=== PATIENT | female | born 1995 | race Caucasian/White ===

== ENCOUNTER 2016-04-04 19:06 | Emergency (ER) | payer SELFPAY | END 2016-04-04 20:20 | disposition left against medical advice (07) | LOC: UCCORT 19:06 | DX: Z53.21 Procedure and treatment not carried out due to patient leaving prior to being seen by health care provider (principal); H57.8 Other specified disorders of eye and adnexa ==

== ENCOUNTER 2016-04-18 15:21 | Emergency (ER) | payer BC ==
[2016-04-18 15:33] VITALS: BP 119/59
--- NOTE | 2016-05-01 21:58 | UC ---
Skin Complaint HPI - HPI Summary HPI Summary: 21 yo female with itchy rash that she attributes to new laundry detergent x 2 days - History of Current Complaint Chief Complaint: UCRash Time Seen by Provider: 04/18/16 15:54 Stated Complaint: RASH Hx Obtained From: Patient Hx Last Menstrual Period: 04/07/16 Onset/Duration: Gradual Onset, Lasting Days - 2 Onset Severity: Mild Current Severity: Moderate Pain Intensity: 0 Pain Scale Used: 0-10 Numeric Location: Diffuse Character: Pruritus, Redness, Raised - slight Aggravating: Clothing, Touch Alleviating: Cold Associated Signs & Symptoms: Positive: Rash - Allergy/Home Medications Allergies/Adverse Reactions: Allergies Allergy/AdvReac Type Severity Reaction Status Date / Time Amoxicillin [From Augmentin] Allergy Intermediate Swelling Verified 04/22/16 19: 00 Clavulanic Acid Allergy Intermediate Swelling Verified 04/22/16 19:00 [From Augmentin] Review of Systems Constitutional: Negative Skin: Rash Eyes: Negative ENT: Negative Respiratory: Negative Cardiovascular: Negative Gastrointestinal: Negative Genitourinary: Negative Motor: Negative Neurovascular: Negative Musculoskeletal: Negative Neurological: Negative Psychological: Negative All Other Systems Reviewed And Are Negative: Yes PMH/Surg Hx/FS Hx/Imm Hx Previously Healthy: Yes - Surgical History Surgical History: Yes Surgery Procedure, Year, and Place: appy 01/2015 - Family History Known Family History: Positive: Hypertension, Other - Denies [facility] of Eye redness - Social History Alcohol Use: None Substance Use Type: None Smoking Status (MU): Never Smoked Tobacco Have You Smoked in the Last Year: No - Immunization History Most Recent Influenza Vaccination: none Vaccination Up to Date: Yes Physical Exam Triage Information Reviewed: Yes Appearance: Well-Appearing, No Pain Distress, Well-Nourished Vital Signs: Initial Vital Signs Temp 98.4 F 04/18/16 15:27 Pulse 62 04/18/16 15:27 Resp 17 04/18/16 15:27 BP 119/59 04/18/16 15:27 Pulse Ox 100 04/18/16 15:27 Vital Signs Reviewed: Yes Eyes: Positive: Conjunctiva Clear ENT: Positive: Hearing grossly normal. Negative: Nasal drainage, Trismus, Muffled/hoarse voice Neck: Positive: Supple Respiratory: Positive: Lungs clear, Normal breath sounds, No respiratory distress Cardiovascular: Positive: RRR, No Murmur Musculoskeletal: Positive: ROM Intact Neurological: Positive: Alert Psychological Exam: Normal Skin Exam: Other - red rash c/w contact dermatitis Course/Dx - Diagnoses Provider Diagnoses: contact dermatitis Discharge - Discharge Plan Condition: Stable Disposition: HOME Patient Education Materials: Contact Dermatitis (ED) Referrals: No Primary Care Phys,NOPCP [Primary Care Provider] - Additional Instructions: recheck in 10 days if not better
== END 2016-04-18 16:20 | disposition home or self-care (01) ==
LOC: UCCORT 15:21
DX: L25.9 Unspecified contact dermatitis, unspecified cause (principal)
CPT/HCPCS: 99212; G0463

== ENCOUNTER 2016-04-22 18:28 | Emergency (ER) | payer BC ==
[2016-04-22 19:07] VITALS: BP 128/66
--- NOTE | 2016-04-22 20:17 | UC ---
General HPI - HPI Summary HPI Summary: tongue is white and coated. She thinks it might be thrush. On Prednisone for 4d for hives. Still getting hives now and then, but they're better. WAnts to be sure she doesn't have DM, as it runs in her family. Weight gain, constant hunger , constant fatigue. No fever. - History of Current Complaint Chief Complaint: UCGeneralIllness Stated Complaint: MED REACTION-ORAL Time Seen by Provider: 04/22/16 19:58 Hx Obtained From: Patient Onset/Duration: Gradual Onset, Lasting Days - 2 Timing: Constant Onset Severity: Mild Current Severity: Mild Associated Signs & Symptoms: Positive: Weakness - Allergy/Home Medications Allergies/Adverse Reactions: Allergies Allergy/AdvReac Type Severity Reaction Status Date / Time Amoxicillin [From Augmentin] Allergy Intermediate Swelling Verified 04/22/16 19: 00 Clavulanic Acid Allergy Intermediate Swelling Verified 04/22/16 19:00 [From Augmentin] Home Medications: Home Medications Prednisone [Deltasone] 20 mg PO BID 04/22/16 [History Confirmed 04/22/16] PMH/Surg Hx/FS Hx/Imm Hx Previously Healthy: Yes - Surgical History Surgical History: Yes Surgery Procedure, Year, and Place: appy 01/2015 - Family History Known Family History: Positive: Diabetes - many members, Other - Denies [facility] of Eye redness - Social History Occupation: Employed Full-time Lives: With Family Alcohol Use: None Substance Use Type: None Smoking Status (MU): Never Smoked Tobacco Have You Smoked in the Last Year: No - Immunization History Most Recent Influenza Vaccination: none Vaccination Up to Date: Yes Review of Systems Constitutional: Fatigue Skin: Other - recurrent hives for weeks Eyes: Negative ENT: Other - coated tongue Respiratory: Negative Cardiovascular: Negative Gastrointestinal: Negative Genitourinary: Negative Motor: Negative Neurovascular: Negative Musculoskeletal: Negative Neurological: Negative Psychological: Negative All Other Systems Reviewed And Are Negative: Yes Physical Exam Triage Information Reviewed: Yes Appearance: Well-Appearing, No Pain Distress, Well-Nourished, Obese Vital Signs: Initial Vital Signs Temp 97.9 F 04/22/16 19:01 Pulse 67 04/22/16 19:01 Resp 18 04/22/16 19:01 BP 128/66 04/22/16 19:01 Pulse Ox 100 04/22/16 19:01 Vital Signs Reviewed: Yes Eye Exam: Normal ENT Exam: Normal ENT: Positive: Other: - tongue is "coated" but not consistent with thrush. No other mouth sores Neck exam: Normal Respiratory Exam: Normal Cardiovascular Exam: Normal Musculoskeletal Exam: Normal Neurological Exam: Normal Psychological Exam: Normal Skin Exam: Normal Diagnostics - Laboratory Diagnostic Studies Completed/Ordered: BG 88 Course/Dx - Course Course Of Treatment: tongue coating likely due to prednisone; advised establishing with application technician. She admits to a lot of anxiety and health fears - Differential Dx - Multi-Symptom Provider Diagnoses: urticaria Discharge - Discharge Plan Condition: Stable Disposition: HOME Patient Education Materials: Urticaria (ED) Referrals: No Primary Care Phys,NOPCP [Primary Care Provider] - Additional Instructions: Your tongue does not look like thrush. The surface of the tongue can change with medications, and it's likely the Prednisone is making the surface dry and thickened. Try sucking on candies to keep the mouth moist. Make an appointment for a thorough physical exam with a primary care doctor. Your blood sugar is normal today at 88
== END 2016-04-22 20:20 | disposition home or self-care (01) ==
LOC: UCCORT 18:28
DX: L50.9 Urticaria, unspecified (principal); E66.9 Obesity, unspecified; Z88.1 Allergy status to other antibiotic agents
CPT/HCPCS: 99211; G0463

== ENCOUNTER 2016-05-11 12:02 | Emergency (ER) | payer BC ==
[2016-05-11 14:32] VITALS: BP 117/70
[2016-05-11] MEDS ORDERED: Ibuprofen TAB* 600 MG PO ONE (15:02)
--- NOTE | 2016-05-11 15:07 | UC ---
UC General HPI - History of Current Complaint Chief Complaint: UCGU Stated Complaint: DIARRHEA, HEAVY MENSES Time Seen by Provider: 05/11/16 14:44 - Allergy/Home Medications Allergies/Adverse Reactions: Allergies Allergy/AdvReac Type Severity Reaction Status Date / Time Amoxicillin [From Augmentin] Allergy Intermediate Swelling Verified 04/22/16 19: 00 Clavulanic Acid Allergy Intermediate Swelling Verified 04/22/16 19:00 [From Augmentin] Home Medications: Home Medications Acetaminophen [Acetaminophen Extra Stren] 500 mg PO PRN 05/11/16 [History] PMH/Surg Hx/FS Hx/Imm Hx Previously Healthy: Yes - Surgical History Surgical History: Yes Surgery Procedure, Year, and Place: appy 01/2015 - Family History Known Family History: Positive: None, Diabetes - many members, Other - Denies [facility] of Eye redness - Social History Alcohol Use: None Substance Use Type: None Smoking Status (MU): Never Smoked Tobacco Have You Smoked in the Last Year: No - Immunization History Most Recent Influenza Vaccination: none Vaccination Up to Date: Yes Review of Systems Constitutional: Negative Skin: Negative Eyes: Negative ENT: Negative Respiratory: Negative Cardiovascular: Negative Gastrointestinal: Abdominal Pain, Other - heavy menses Genitourinary: Negative Motor: Negative Neurovascular: Negative Musculoskeletal: Negative Neurological: Negative Psychological: Negative All Other Systems Reviewed And Are Negative: Yes Physical Exam Triage Information Reviewed: Yes Appearance: Well-Appearing, Well-Nourished, Pain Distress Vital Signs: Initial Vital Signs Temp 97.8 F 05/11/16 14:25 Pulse 80 05/11/16 14:25 Resp 14 05/11/16 14:25 BP 117/70 05/11/16 14:25 Pulse Ox 100 05/11/16 14:25 Eye Exam: Normal Eyes: Positive: Conjunctiva Clear ENT Exam: Normal ENT: Positive: Normal ENT inspection, Hearing grossly normal, Pharynx normal, TMs normal Dental Exam: Normal Neck exam: Normal Neck: Positive: Supple, Nontender, No Lymphadenopathy Respiratory Exam: Normal Respiratory: Positive: Chest non-tender, Lungs clear, Normal breath sounds Cardiovascular Exam: Normal Cardiovascular: Positive: RRR, No Murmur, Pulses Normal Abdomen Description: Positive: Nontender, No Organomegaly, Soft, Other: - no palpable masses, non tender with palpation throughout Bowel Sounds: Positive: Present Musculoskeletal Exam: Normal Musculoskeletal: Positive: Strength Intact, ROM Intact, No Edema Neurological Exam: Normal Neurological: Positive: Alert, Muscle Tone Normal Psychological Exam: Normal Skin Exam: Normal Course/Dx - Course Course Of Treatment: hx obtained, exam performed, ibuprofen given, BC presribed. [facility] referral given. - Differential Dx - Multi-Symptom Provider Diagnoses: dysmennohrea. cramping Discharge - Discharge Plan Condition: Stable Disposition: HOME Prescriptions: Norgestimate-Eth Estradiol(NF) [Ortho Tri-Cyclen (NF)] 1 tab PO DAILY #1 gregory Patient Education Materials: Dysmenorrhea (ED) Additional Instructions: FOllow up with a ACID REMOVER for your heavy periods. I recommend continuing the ibuprofen for cramping and bleeding. Take the medication as directed.
== END 2016-05-11 15:19 | disposition home or self-care (01) ==
LOC: UCCORT 12:02
DX: N94.6 Dysmenorrhea, unspecified (principal); N92.0 Excessive and frequent menstruation with regular cycle; R19.7 Diarrhea, unspecified; Z88.1 Allergy status to other antibiotic agents
CPT/HCPCS: 99212; A9270-GY; G0463

== ENCOUNTER 2016-08-16 10:08 | Emergency (ER) | payer BC ==
[2016-08-16 11:07] VITALS: BP 114/60
--- NOTE | 2016-08-16 11:38 | UC ---
Ear Complaint HPI - HPI Summary HPI Summary: "1. c/o of bi-lat ear pain for the past 4 days, denies any recent URI. Also c/o urinary frequency and burning with urination. Pt has been having issues with yeast infections over the past 6 months following antibiotic use. she is unsure if she has a UTI or yeast infection." -she has not been seen for these. She plans to establish with [facility] in [place] but hasnt done so yet. Does not have PCP. Has menses no adn declines exam today. took uristat last night. significant dysuria x months she states. She does have thick white discharge with itchiness. Denies as she is griffiths. - History of Current Complaint Chief Complaint: UCEar Stated Complaint: EAR,URINARY COMPLAINT Time Seen by Provider: 08/16/16 11:18 Hx Last Menstrual Period: 08/14/16 - Allergies/Home Medications Allergies/Adverse Reactions: Allergies Allergy/AdvReac Type Severity Reaction Status Date / Time Amoxicillin [From Augmentin] Allergy Intermediate Swelling Verified 04/22/16 19: 00 Clavulanic Acid Allergy Intermediate Swelling Verified 04/22/16 19:00 [From Augmentin] Home Medications: Home Medications Uro-Stat 2 cap PO PRN 08/16/16 [History] PMH/Surg Hx/FS Hx/Imm Hx Previously Healthy: Yes - Surgical History Surgical History: Yes Surgery Procedure, Year, and Place: app 01/2015 - Family History Known Family History: Positive: None, Diabetes - many members, Other - Denies [facility] of Eye redness - Social History Alcohol Use: Rare Substance Use Type: None Smoking Status (MU): Never Smoked Tobacco Have You Smoked in the Last Year: No - Immunization History Most Recent Influenza Vaccination: none Vaccination Up to Date: Yes Review of Systems Constitutional: Negative Skin: Negative Eyes: Negative ENT: Ear Ache Respiratory: Negative Cardiovascular: Negative Gastrointestinal: Negative Genitourinary: Dysuria Motor: Negative Neurovascular: Negative Musculoskeletal: Negative Neurological: Negative Psychological: Negative All Other Systems Reviewed And Are Negative: Yes Physical Exam Triage Information Reviewed: Yes Appearance: Well-Appearing, No Pain Distress, Well-Nourished Vital Signs: Initial Vital Signs Temp 98.8 F 08/16/16 10:54 Pulse 70 08/16/16 10:54 Resp 16 08/16/16 10:54 BP 114/60 08/16/16 10:54 Pulse Ox 100 08/16/16 10:54 Eye Exam: Normal ENT: Positive: Pharynx normal, Pharyngeal erythema - mild with + PND., TMs normal - b/l serous fluid mild-moderate, rt > left. no erythema, no bulging.. Negative: TM bulging, TM dull, TM red, Tonsillar swelling, Tonsillar exudate Dental Exam: Normal Neck exam: Normal Neck: Positive: Supple, Nontender, No Lymphadenopathy Respiratory: Positive: Lungs clear, Normal breath sounds, No respiratory distress, No accessory muscle use Cardiovascular Exam: Normal Cardiovascular: Positive: RRR, No Murmur, Pulses Normal, Brisk Capillary Refill Abdomen Description: Positive: Soft, Other: - mild suprapubic tenderness.. Negative: CVA Tenderness (R), CVA Tenderness (L), Distended, Guarding Musculoskeletal Exam: Normal Neurological Exam: Normal Psychological Exam: Normal Skin Exam: Normal Ear Complaint Course/Dx - Differential Dx/Diagnosis Differential Diagnosis/HQI/PQRI: Otitis Externa, Otitis Media, URI, Other - UTI , vaginal candidisis Provider Diagnoses: Dysuria, B/l serous otitis Discharge - Discharge Plan Condition: Stable Disposition: HOME Prescriptions: Fluconazole [Diflucan 100 mg tab] 100 mg PO ONCE #1 tab Fluticasone NASAL SPRAY 50MCG* [Flonase NASAL SPRAY 50MCG*] 2 spray BOTH NARES DAILY #1 btl Nitrofurantoin Monohyd Macro [Macrobid] 100 mg PO BID #14 cap Patient Education Materials: Urinary Tract Infection in Women (ED), Vulvovaginal Candidiasis (ED), Serous Otitis Media (ED) Referrals: [facility] [Provider Group] - 3 Days No Primary Care Phys,NOPCP [Primary Care Provider] - Additional Instructions: Your urine is sent for a culture as we are unable to get an accurate urine dip because of the medicine that you took. You should call the [facility] on Thursday that you are planning to establish with for an appt soon. If you have symptoms of UTI in future, you should seek treatment immediately as they can become very serious if untreated and they progress.
== END 2016-08-16 12:05 | disposition home or self-care (01) ==
LOC: UCCORT 10:08
DX: H65.93 Unspecified nonsuppurative otitis media, bilateral (principal); R30.0 Dysuria; Z88.1 Allergy status to other antibiotic agents
CPT/HCPCS: 87086; 99212; G0463

== ENCOUNTER 2017-11-10 07:48 | Emergency (ER) | payer BC ==
[2017-11-10 08:10] VITALS: BP 112/47
--- NOTE | 2017-11-10 08:47 | UC ---
Skin Complaint HPI - HPI Summary HPI Summary: foreign body left plantar foot x 1 day stepped on glass yesterday , small glass went into her left foot , cannot take it out, sever pain with walking, better if not step on her left foot - History of Current Complaint Chief Complaint: UCLowerExtremity Time Seen by Provider: 11/10/17 08:14 Stated Complaint: GLASS IN LEFT FOOT Hx Obtained From: Patient Hx Last Menstrual Period: 10/16/17 ?: No Onset/Duration: Sudden Onset, Lasting Days - 1, Still Present Timing: Constant Onset Severity: Moderate Current Severity: Moderate Pain Intensity: 0 Pain Scale Used: 0-10 Numeric Location: Discrete - left plantar foot Character: Painful Aggravating Factor(s): Touch, Other - walking Alleviating Factor(s): Nothing Associated Signs & Symptoms: Positive: Tenderness Related History: Foreign Body - Allergy/Home Medications Allergies/Adverse Reactions: Allergies Allergy/AdvReac Type Severity Reaction Status Date / Time amoxicillin [From Augmentin] Allergy Swelling Verified 11/10/17 08:04 clavulanic acid Allergy Swelling Verified 11/10/17 08:04 [From Augmentin] Home Medications: Home Medications NK [No Home Medications Reported] 11/10/17 [History Confirmed 11/10/17] Review of Systems Constitutional: Negative Is Patient Immunocompromised?: No All Other Systems Reviewed And Are Negative: Yes PMH/Surg Hx/FS Hx/Imm Hx Previously Healthy: Yes - Surgical History Surgical History: Yes Surgery Procedure, Year, and Place: appy 01/2015 - Family History Known Family History: Positive: None, Diabetes - many members, Other - Denies [facility] of Eye redness - Social History Alcohol Use: None Substance Use Type: None Smoking Status (MU): Never Smoked Tobacco Have You Smoked in the Last Year: No - Immunization History Most Recent Influenza Vaccination: none Vaccination Up to Date: Yes Physical Exam Triage Information Reviewed: Yes Appearance: Well-Appearing, No Pain Distress, Well-Nourished Vital Signs: Initial Vital Signs Temp 98.3 F 11/10/17 08:04 Pulse 76 11/10/17 08:04 Resp 18 11/10/17 08:04 BP 112/47 11/10/17 08:04 Pulse Ox 99 11/10/17 08:04 Vital Signs Reviewed: Yes Eye Exam: Normal Eyes: Positive: Conjunctiva Clear ENT: Positive: Normal ENT inspection, Hearing grossly normal, Pharynx normal Neck exam: Normal Neck: Positive: Supple, Nontender Respiratory: Positive: Chest non-tender, Lungs clear, Normal breath sounds Cardiovascular: Positive: RRR, No Murmur, Pulses Normal Skin: Positive: Other - left plantar foot: + FB / glass noter , the glass was removed using a splinter forcep Course/Dx - Diagnoses Provider Diagnoses: foreign body left foot Discharge - Sign-Out/Discharge Documenting (check all that apply): Patient Departure - Discharge Plan Condition: Stable Disposition: HOME Patient Education Materials: Soft Tissue Foreign Body (ED) Referrals: No Primary Care Phys,NOPCP [Primary Care Provider] - If Needed - Billing Disposition and Condition Condition: STABLE Disposition: Home
== END 2017-11-10 08:38 | disposition home or self-care (01) ==
LOC: UCCORT 07:48
DX: S91.342A Puncture wound with foreign body, left foot, initial encounter (principal); Z88.0 Allergy status to penicillin; Z88.8 Allergy status to other drugs, medicaments and biological substances; W22.8XXA Striking against or struck by other objects, initial encounter; Y93.01 Activity, walking, marching and hiking; Y92.9 Unspecified place or not applicable
CPT/HCPCS: 28190; 99211; G0463

== ENCOUNTER 2018-01-15 10:15 | Emergency (ER) | payer BC ==
[2018-01-15 10:54] VITALS: BP 121/58
--- NOTE | 2018-01-15 11:04 | UC ---
Complaint Female HPI - HPI Summary HPI Summary: 22 y/o female presents to the urgent care c/o burning and discomfort on urination and a white vaginal discharge w/ itchiness for the past week. Pt reports she has drinking fluids and apply 3 day course of Monistat vaginal cream w/o any improvement. LMP: 12/22/2017 w/ regular menstrual cycles. Pain on uriantion is 3/10. Pt denies lower back pain, pelvic pain, flank pain, Hx of STD 's SOB, chest pain, abdominal pain, N/V/D. - History Of Current Complaint Chief Complaint: UCGeneralIllness Stated Complaint: URINARY Time Seen by Provider: 01/15/18 10:48 Hx Obtained From: Patient Hx Last Menstrual Period: 12/22/17 ?: No Onset/Duration: Gradual Onset, Lasting Weeks - 1 week, Still Present, Worse Since - yesterday Timing: Constant Severity Initially: Mild Severity Currently: Mild Pain Intensity: 2 Pain Scale Used: 0-10 Numeric Character: Burning Aggravating Factor(s): Urination Alleviating Factor(s): Nothing Associated Signs And Symptoms: Positive: Vaginal Discharge - white. Negative: Fever, Back Pain, Nausea, Vomiting(# Of Episodes =), Genital Swelling, Genital Blisters - Risk Factors Ectopic Risk Factor: Negative Ovarian Torsion Risk Factor: Negative - Allergies/Home Medications Allergies/Adverse Reactions: Allergies Allergy/AdvReac Type Severity Reaction Status Date / Time amoxicillin [From Augmentin] Allergy Swelling Verified 01/15/18 10:51 clavulanic acid Allergy Swelling Verified 01/15/18 10:51 [From Augmentin] PMH/Surg Hx/FS Hx/Imm Hx Previously Healthy: Yes Other Psychological History: ADHD - Surgical History Surgical History: Yes Surgery Procedure, Year, and Place: app 01/2015 - Family History Known Family History: Positive: Cardiac Disease, Diabetes - many members - Social History Occupation: Employed Full-time Lives: With Family Alcohol Use: Occasionally Substance Use Type: None Smoking Status (MU): Never Smoked Tobacco Have You Smoked in the Last Year: No - Immunization History Most Recent Influenza Vaccination: none Vaccination Up to Date: Yes Review of Systems Constitutional: Negative Skin: Negative Eyes: Negative ENT: Negative Respiratory: Negative Cardiovascular: Negative Gastrointestinal: Negative Genitourinary: Dysuria, Frequency, Urgency, Vaginal/Penile Itching, Vaginal/ Penile Discharge Motor: Negative Neurovascular: Negative Musculoskeletal: Negative Neurological: Negative Psychological: Negative Is Patient Immunocompromised?: No All Other Systems Reviewed And Are Negative: Yes Physical Exam - Summary Physical Exam Summary: Vital signs: reviewed General: well developed, well nourished obese female sitting in the examining table w/o any acute distress. Head: Normocephalic, no lesions. Eyes: PERRLA, EOM's full, conjunctiva clear, fundi grossly normal. Ears: EAC's clear, TM's normal. Nose: Mucosa normal, no obstruction. Throat: Clear, no exudates, no lesions. Neck: Supple, no masses, no thyromegaly, no bruits. Chest: Lungs clear, no rales, no rhonchi, no wheezes. Heart: RR, no murmurs, no rubs, no gallops. Abdomen: Soft, no tenderness, no masses, BS normal. Pelvic: I was mover helper by Nurse Chaya. External genitalia within normal limits. There is no lesions there is no masses noted. Speculum exam: The vaginal johnson are within normal limits w/ white cottage cheese vaginal discharge , no the lesions or rashes. The cervix is closed with no lesions or masses. There is no CMT's, and no adnexal masses. Sample sent to Lab Affirm panel. Rectal: No lesions, no hemorrhoids, Back: Normal curvature, no tenderness. Extremities: FROM, no deformities, no edema, no erythema. Neuro: Physiological, no localizing findings. Skin: Normal, no rashes, no lesions noted. Triage Information Reviewed: Yes Vital Signs: Initial Vital Signs Temp 98.1 F 01/15/18 10:44 Pulse 82 01/15/18 10:44 Resp 14 01/15/18 10:44 BP 121/58 01/15/18 10:44 Pulse Ox 99 01/15/18 10:44 Complaint Female Dx - Course Course Of Treatment: 22 y/o female presents to the urgent care c/o burning and discomfort on urination and a white vaginal discharge w/ itchiness for the past week. Pt reports she has drinking fluids and apply 3 day course of Monistat vaginal cream w/o any improvement. LMP: 12/22/2017 w/ regular menstrual cycles. Pain on uriantion is 3/10. Pt denies lower back pain, pelvic pain, flank pain, Hx of STD's SOB, chest pain, abdominal pain, N/V/D. Hx obtained. UA and test ordered are negative. Pt w/ a white cottage cheese vaginal discharge on pelvic examination. Pt w/ probably Vulvovaginal candidiasis. Sample sent to Lab for Affirm panel to r/o any abnormality. Pt declines STDs screening. Pt will be notified of result. Pt Rx Fluconazole PO and Pyridium for dysuria. Pt advised to f/u STD's screening at [facility]. D/C instructions explained. Pt understood and agreed with plan of care. - Differential Dx/Diagnosis Differential Diagnosis/HQI/PQRI: Cervicitis, Pelvic Inflammatory Disease, , Renal Colic, Sexually Transmitted Disease, Ureteral Stone, Urinary Tract Infection Provider Diagnoses: 1- Dysuria. 2- Vulvovaginal candidiasis Discharge - Sign-Out/Discharge Documenting (check all that apply): Patient Departure - D/c home All imaging exams completed and their final reports reviewed: No Studies - Discharge Plan Condition: Stable Disposition: HOME Prescriptions: Fluconazole [Fluconazole 150 mg tab] 150 mg PO ONCE #1 tablet Phenazopyridine TAB* [Pyridium 100 mg TAB*] 100 mg PO TID #6 tab Patient Education Materials: Yeast Infection (ED), Dysuria (ED) Referrals: [facility]IAN REFERRAL [Outside] - 3 Days Additional Instructions: 1- Please take Pyridium 100 mg PO TID x 2 days to alleviate urinary symptoms. Increase increase fluid intake. drink cranberry juice. 2- Please take Fluconazole PO as directed to alleviate yeast infection 3- Pelvic swab sent to lab, if any abnormality, you will be notified for further treatment. 4-If symptoms do not improve please return to the urgent care or f/u with your TRAVEL CLERK for further management - Billing Disposition and Condition Condition: STABLE Disposition: Home
== END 2018-01-15 11:39 | disposition home or self-care (01) ==
LOC: UCCORT 10:15
DX: R30.0 Dysuria (principal); B37.3 Candidiasis of vulva and vagina; Z88.0 Allergy status to penicillin; Z88.8 Allergy status to other drugs, medicaments and biological substances
CPT/HCPCS: 81003; 84702; 87480; 87510; 99212; G0463

== ENCOUNTER 2018-05-23 11:26 | Emergency (ER) | payer BC ==
[2018-05-23 12:30] VITALS: BP 120/65
--- NOTE | 2018-05-23 13:04 | UC ---
Complaint Female HPI - HPI Summary HPI Summary: per nursing triage; HAS BEEN TREATED TWICE FOR YEAST INFECTIONS IN THE LAST 2-3 MONTHS. HAS A WHITE DISCHARGE , DENIES ANY ODOR. MILD VAGINAL ITCHING. NO ABDOMINAL PAIN. HAS SOME BURNING WITH URINATION AND HAS NOTICE A STRONG ODOR The urine. the culture for the last visit was negative for yeast or gardnerella. states this happens often, is in a monogamous relationship - History Of Current Complaint Chief Complaint: UCGU Stated Complaint: UTI SYMPTOMS Time Seen by Provider: 05/23/18 12:18 Hx Obtained From: Patient Hx Last Menstrual Period: 04/30/18 ?: No Onset/Duration: Sudden Onset, Lasting Days Timing: Constant Severity Initially: Moderate Severity Currently: Moderate Pain Intensity: 4 Character: Burning Aggravating Factor(s): Urination Associated Signs And Symptoms: Positive: Vaginal Discharge - Allergies/Home Medications Allergies/Adverse Reactions: Allergies Allergy/AdvReac Type Severity Reaction Status Date / Time amoxicillin [From Augmentin] Allergy Swelling Verified 05/23/18 12:22 clavulanic acid Allergy Swelling Verified 05/23/18 12:22 [From Augmentin] PMH/Surg Hx/FS Hx/Imm Hx Previously Healthy: Yes - Surgical History Surgical History: Yes Surgery Procedure, Year, and Place: appy 01/2015 - Family History Known Family History: Positive: None, Cardiac Disease, Diabetes - many members, Other - Denies FMH of Eye redness - Social History Alcohol Use: Occasionally Substance Use Type: None Smoking Status (MU): Never Smoked Tobacco Have You Smoked in the Last Year: No - Immunization History Most Recent Influenza Vaccination: none Vaccination Up to Date: Yes Review of Systems All Other Systems Reviewed And Are Negative: Yes Constitutional: Positive: Negative Skin: Positive: Negative Eyes: Positive: Negative ENT: Positive: Negative Respiratory: Positive: Negative Cardiovascular: Positive: Negative Gastrointestinal: Positive: Negative Genitourinary: Positive: Dysuria, Vaginal/Penile Itching, Vaginal/Penile Discharge Motor: Positive: Negative Neurovascular: Positive: Negative Musculoskeletal: Positive: Negative Neurological: Positive: Negative Psychological: Positive: Negative Is Patient Immunocompromised?: No Physical Exam Triage Information Reviewed: Yes Appearance: Well-Appearing, Well-Nourished, Pain Distress Vital Signs: Initial Vital Signs Temp 98.2 F 05/23/18 12:23 Pulse 77 05/23/18 12:23 Resp 18 05/23/18 12:23 BP 120/65 05/23/18 12:23 Pulse Ox 100 05/23/18 12:23 Vital Signs Reviewed: Yes Eye Exam: Normal ENT Exam: Normal Neck exam: Normal Respiratory Exam: Normal Abdomen Description: Positive: Nontender, No Organomegaly, Soft, CVA Tenderness (R) - neg, CVA Tenderness (L) - neg Pelvic Exam: Positive: Other - deferred pelvic exam Musculoskeletal Exam: Normal Neurological Exam: Normal Neurological: Positive: Alert Psychological Exam: Normal Skin Exam: Normal Complaint Female Dx - Course Course Of Treatment: hx obtained, exam performed ,meds reviewed, affirm collected, treated due to suspicion of yeast with a diflucan. reviewed hygiene and diet for vaginal health. reviewed OTC treatment of vaginal itching. UA was negative - Differential Dx/Diagnosis Differential Diagnosis/HQI/PQRI: Urinary Tract Infection Provider Diagnosis: Vaginal itching, Dysuria Discharge - Sign-Out/Discharge Documenting (check all that apply): Patient Departure All imaging exams completed and their final reports reviewed: No Studies - Discharge Plan Condition: Stable Disposition: HOME Prescriptions: Fluconazole 150 MG (NF) [Diflucan 150 mg (NF)] 150 mg PO ONCE #1 tab Patient Education Materials: Vaginitis (ED) Referrals: No Primary Care Phys,NOPCP [Primary Care Provider] - Ammon Zavala MD [Medical Doctor] - [facility] [Outside] Additional Instructions: 1. take the medication as prescribed. 2. The culture will be available in a few days, 3. I have included some OTC remedies to help with vaginal health. 4. Increase your fluid intake and 5. I recommend follow up with [facility]. - Billing Disposition and Condition Condition: STABLE Disposition: Home - Attestation Statements Provider Attestation: Per institutional requirements, I have reviewed the chart, however, I was not consulted specifically or made aware of this patient by the midlevel provider. I did not personally evaluate, interact with , or disposition this patient.
--- NOTE | 2018-05-25 07:12 | UC ---
- Progress Note Progress Note: vaginal culture , + gardnerella, negative Silvia will call in Flagyl 500 mg bid x 7 days Course/Dx - Diagnoses Provider Diagnoses: Vaginal itching, Dysuria Discharge - Sign-Out/Discharge Documenting (check all that apply): Patient Departure All imaging exams completed and their final reports reviewed: No Studies - Discharge Plan Condition: Stable Disposition: HOME Prescriptions: Fluconazole 150 MG (NF) [Diflucan 150 mg (NF)] 150 mg PO ONCE #1 tab metroNIDAZOLE [Flagyl] 500 mg PO BID #17 tablet Patient Education Materials: Vaginitis (ED) Referrals: [facility] [Outside] No Primary Care Phys,NOPCP [Primary Care Provider] - Ammon Zavala MD [Medical Doctor] - Additional Instructions: 1. take the medication as prescribed. 2. The culture will be available in a few days, 3. I have included some OTC remedies to help with vaginal health. 4. Increase your fluid intake and 5. I recommend follow up with [facility]. - Billing Disposition and Condition Condition: STABLE Disposition: Home
== END 2018-05-23 13:19 | disposition home or self-care (01) ==
LOC: UCCORT 11:26
DX: N89.8 Other specified noninflammatory disorders of vagina (principal); R30.0 Dysuria; Z88.0 Allergy status to penicillin
CPT/HCPCS: 81003; 87480; 87510; 87660; 99212; G0463

== ENCOUNTER 2018-08-18 17:53 | Emergency (ER) | payer BC ==
[2018-08-18 18:42] VITALS: BP 112/65
--- NOTE | 2018-08-18 18:47 | UC ---
UC General HPI - HPI Summary HPI Summary: 2 WEEK HX OF FREQUENT-BURNING URINATION. + URGENCY. NO ABDOMINAL PAIN, FEVER, FLANK PAIN OR VAGINAL DISCHARGE. - History of Current Complaint Stated Complaint: URINARY Time Seen by Provider: 08/18/18 18:34 Hx Obtained From: Patient Hx Last Menstrual Period: 04/30/18 Onset/Duration: Gradual Onset Timing: Constant - Allergy/Home Medications Allergies/Adverse Reactions: Allergies Allergy/AdvReac Type Severity Reaction Status Date / Time amoxicillin [From Augmentin] Allergy Swelling Verified 08/18/18 18:42 clavulanic acid Allergy Swelling Verified 08/18/18 18:42 [From Augmentin] PMH/Surg Hx/FS Hx/Imm Hx Previously Healthy: Yes - Surgical History Surgical History: Yes Surgery Procedure, Year, and Place: app 01/2015 - Family History Known Family History: Positive: None, Cardiac Disease, Diabetes - many members, Other - Denies H of Eye redness - Social History Alcohol Use: Occasionally Substance Use Type: None Smoking Status (MU): Never Smoked Tobacco Have You Smoked in the Last Year: No - Immunization History Most Recent Influenza Vaccination: none Vaccination Up to Date: Yes Review of Systems All Other Systems Reviewed And Are Negative: Yes Constitutional: Negative: Fever Gastrointestinal: Negative: Abdominal Pain Genitourinary: Positive: Dysuria, Frequency, Urgency. Negative: Vaginal/Penile Discharge Physical Exam Triage Information Reviewed: Yes Appearance: Well-Appearing Vital Signs Reviewed: Yes Neck: Positive: Supple Respiratory: Positive: Lungs clear Cardiovascular: Positive: RRR Abdomen Description: Positive: Nontender, No Organomegaly, Soft. Negative: CVA Tenderness (R), CVA Tenderness (L), Distended, Guarding Bowel Sounds: Positive: Present Musculoskeletal: Positive: ROM Intact Neurological: Positive: Alert Psychological: Positive: Age Appropriate Behavior Skin Exam: Normal Diagnostics - Laboratory Lab Results: u/a=trace protein, ketones and 1+ blood. culture pending. Course/Dx - Differential Dx - Multi-Symptom Differential Diagnoses: Other - non toxic, no acute abdomen. pt denies s/s's of pelvic infection. will cover for possible uti while culture is pending. - Diagnoses Provider Diagnosis: Dysuria Discharge - Sign-Out/Discharge Documenting (check all that apply): Patient Departure All imaging exams completed and their final reports reviewed: No Studies - Discharge Plan Condition: Stable Disposition: HOME Prescriptions: Sulfamethox/Trimethoprim DS* [Bactrim DS 800/160 TAB*] 1 tab PO BID 3 Days #6 tab Patient Education Materials: Dysuria (ED) Referrals: MARIUSZ Marino [Medical Doctor] - As Soon As Possible - Billing Disposition and Condition Condition: STABLE Disposition: Home
== END 2018-08-18 19:27 | disposition home or self-care (01) ==
LOC: UCCORT 17:53
DX: R30.0 Dysuria (principal); Z88.0 Allergy status to penicillin
CPT/HCPCS: 81003; 87086; 99212; G0463

== ENCOUNTER 2018-12-15 21:05 | Emergency (ER) | payer BC ==
[2018-12-15 21:24] VITALS: BP 115/70
[2018-12-15] MEDS ORDERED: metroNIDAZOLE TAB* 250 MG PO ONE ×2 (21:43→21:44)
[2018-12-15] MEDS ORDERED: Fluconazole 150 MG TAB PO ONE (21:44)
--- NOTE | 2018-12-15 21:46 | UC ---
Complaint Female HPI - HPI Summary HPI Summary: 23-year-old woman comes in with chief complaint of abnormal vaginal discharge for 2 days. This reminds the patient of when she had bacterial vaginosis in the past. She's also had yeast infections fairly recently. Denies any concern of STI. No abdominal pain no fevers no chills. - History Of Current Complaint Chief Complaint: UCGU Stated Complaint: PERSONAL Time Seen by Provider: 12/15/18 21:33 Hx Last Menstrual Period: 11/24/18 Pain Intensity: 0 - Allergies/Home Medications Allergies/Adverse Reactions: Allergies Allergy/AdvReac Type Severity Reaction Status Date / Time amoxicillin [From Augmentin] Allergy Swelling Verified 12/15/18 21:19 clavulanic acid Allergy Swelling Verified 12/15/18 21:19 [From Augmentin] PMH/Surg Hx/FS Hx/Imm Hx Previously Healthy: Yes - Surgical History Surgical History: Yes Surgery Procedure, Year, and Place: Appendectomy, 2014, [place]; T&A, ~1999, [place] - Family History Known Family History: Positive: None, Cardiac Disease, Diabetes - many members, Other - Denies FMH of Eye redness - Social History Alcohol Use: Occasionally Substance Use Type: None Substance Use Comment - Amount & Last Used: occasionally Smoking Status (MU): Never Smoked Tobacco Have You Smoked in the Last Year: No - Immunization History Most Recent Influenza Vaccination: none Vaccination Up to Date: Yes Review of Systems All Other Systems Reviewed And Are Negative: Yes Constitutional: Positive: Negative Skin: Positive: Negative Eyes: Positive: Negative ENT: Positive: Negative Respiratory: Positive: Negative Gastrointestinal: Positive: Negative Genitourinary: Positive: Other - SEE HPI Motor: Positive: Negative Neurovascular: Positive: Negative Musculoskeletal: Positive: Negative Neurological: Positive: Negative Psychological: Positive: Negative Is Patient Immunocompromised?: No Physical Exam Triage Information Reviewed: Yes Appearance: Well-Appearing, No Pain Distress, Well-Nourished Vital Signs: Initial Vital Signs Temp 98.2 F 12/15/18 21:16 Pulse 58 12/15/18 21:16 Resp 16 12/15/18 21:16 BP 115/70 12/15/18 21:16 Pulse Ox 100 12/15/18 21:16 Vital Signs Reviewed: Yes Eye Exam: Normal Eyes: Positive: Conjunctiva Clear Neck: Positive: Supple Respiratory: Positive: No respiratory distress Pelvic Exam: Positive: Other - There is some clear sadler discharge with a slight odor. Otherwise normal exam. Musculoskeletal: Positive: Strength Intact, ROM Intact Neurological: Positive: Alert Psychological: Positive: Age Appropriate Behavior Skin Exam: Normal Complaint Female Dx - Course Course Of Treatment: Patient's exam and history is most consistent with bacterial vaginitis. Patient started on Flagyl 500 mg by mouth twice a day for 7 days. Also given a prescription for Diflucan. Gonorrhea chlamydia and affirm are all pending. No UTI symptoms therefore no treatment of urinary tract infection at this time. Urine culture is pending. Patient will follow-up with her potato spotter. Reevaluate sooner if worse or any questions or concerns. - Differential Dx/Diagnosis Provider Diagnosis: Vaginitis Discharge ED - Sign-Out/Discharge Documenting (check all that apply): Patient Departure All imaging exams completed and their final reports reviewed: No Studies - Discharge Plan Condition: Stable Disposition: HOME Prescriptions: Fluconazole 150 MG TAB* [Diflucan 150 MG TAB*] 150 mg PO ONCE #2 tablet metroNIDAZOLE [Flagyl] 500 mg PO BID #12 tablet Patient Education Materials: Vaginitis (ED) Referrals: [facility] [place] [facility] [Outside] Viv Stone MD [Medical Doctor] - Additional Instructions: FOLLOW UP WITH YOUR MEDICAL RECEPTION. GET REEVALUATED SOONER IF WORSE; PAIN, FEVER, YOU FEEL ILL OR ANY QUESTIONS OR CONCERNS. - Billing Disposition and Condition Condition: STABLE Disposition: Home
--- NOTE | 2018-12-17 07:17 | UC ---
- Progress Note Progress Note: neg gardnerella neg rafael no change [facility] Course/Dx - Diagnoses Provider Diagnoses: Vaginitis Discharge ED - Sign-Out/Discharge Documenting (check all that apply): Post-Discharge Follow Up All imaging exams completed and their final reports reviewed: No Studies - Discharge Plan Condition: Stable Disposition: HOME Prescriptions: Fluconazole 150 MG TAB* [Diflucan 150 MG TAB*] 150 mg PO ONCE #2 tablet metroNIDAZOLE [Flagyl] 500 mg PO BID #12 tablet Patient Education Materials: Vaginitis (ED) Referrals: [facility] [place] [facility] [Outside] Viv Stone MD [Medical Doctor] - Additional Instructions: FOLLOW UP WITH YOUR CONSULTING PROPERTY MANAGER. GET REEVALUATED SOONER IF WORSE; PAIN, FEVER, YOU FEEL ILL OR ANY QUESTIONS OR CONCERNS. - Billing Disposition and Condition Condition: STABLE Disposition: Home
[2018-12-17 12:15] LABS: Chlamydia trachomatis NAA Negative (Negative); Neisseria gonorrhoeae (GC) NAA Negative (Negative)
== END 2018-12-15 22:08 | disposition home or self-care (01) ==
LOC: UCCORT 21:05
DX: N76.0 Acute vaginitis (principal)
CPT/HCPCS: 81003; 84702; 87086; 87480; 87491; 87510; 87591; 87661; 99213; A9270-GY; G0463

== ENCOUNTER 2019-05-31 21:10 | Emergency (ER) | payer BC ==
[2019-05-31 21:20] VITALS: BP 139/75
--- NOTE | 2019-05-31 21:24 | UC ---
FLU HPI - HPI Summary HPI Summary: Patient is a 24yo female presenting with girlfriend for fever of 101 this morning at 1100 "out of nowhere" and mild dry cough that started shortly after. Denies nasal congestion and sore throat. Notes nausea earlier, none now. Denies vomiting. Notes body aches. Denies sob and wheezing. - History of Current Complaint Chief Complaint: UCGeneralIllness Stated Complaint: FEVER/COUGH/LIGHTHEADED Hx Obtained From: Patient Hx Last Menstrual Period: 05/25/19 Pain Intensity: 0 - Allergy/Home Medications Allergies/Adverse Reactions: Allergies Allergy/AdvReac Type Severity Reaction Status Date / Time amoxicillin [From Augmentin] Allergy Swelling Verified 05/31/19 21:20 clavulanic acid Allergy Swelling Verified 05/31/19 21:20 [From Augmentin] Home Medications: Home Medications NK [No Home Medications Reported] 05/31/19 [History Confirmed 05/31/19] PMH/Surg Hx/FS Hx/Imm Hx - Surgical History Surgical History: Yes Surgery Procedure, Year, and Place: Appendectomy, 2014, [place]; T&A, ~1999, [place] - Family History Known Family History: Positive: None, Cardiac Disease, Diabetes - many members, Other - Denies FMH of Eye redness - Social History Alcohol Use: Occasionally Substance Use Type: None Substance Use Comment - Amount & Last Used: occasionally Smoking Status (MU): Never Smoked Tobacco Have You Smoked in the Last Year: No - Immunization History Most Recent Influenza Vaccination: none Vaccination Up to Date: Yes Review of Systems All Other Systems Reviewed And Are Negative: Yes Constitutional: Positive: Fever ENT: Positive: Negative Respiratory: Positive: Cough. Negative: Shortness Of Breath Cardiovascular: Positive: Negative Gastrointestinal: Positive: Negative Musculoskeletal: Positive: Myalgia Neurological/Mental Status: Positive: Negative Physical Exam - Summary Physical Exam Summary: Vital Signs Reviewed: Yes A+Ox3, no distress, well-appearing Eyes: Conjunctiva Clear ENT: Hearing grossly normal, TM x 2 clear, moist, uvula midline, no exudate, no erythema Neck: Positive: Supple Respiratory: Positive: No respiratory distress, No accessory muscle use + CTA throughout no w/r Cardiovascular: tachycardia, regular rhythm nl s1, s2 no m/r Musculoskeletal Exam: FRANZ x 4 without difficulty Neurological: Positive: Alert Psychological: Positive: age appropriate behavior Skin: Positive: no rash, no ecchymosis Vital Signs: Initial Vital Signs Temp 98.3 F 05/31/19 21:18 Pulse 113 05/31/19 21:18 Resp 18 05/31/19 21:18 BP 139/75 05/31/19 21:18 Pulse Ox 98 05/31/19 21:18 Flu Course/Dx - Course Course Of Treatment: Negative rapid flu. Discussed viral illness with patient and instructed to take ibuprofen and/or tylenol for fever and pain relief. Instructed to follow up with [facility] if symptoms do not improve within 10 days. - Differential Dx/Diagnosis Differential Diagnosis/HQI/PQRI: Influenza, Upper Respiratory Infection Provider Diagnosis: Viral URI with cough Discharge ED - Sign-Out/Discharge Documenting (check all that apply): Patient Departure All imaging exams completed and their final reports reviewed: No Studies - Discharge Plan Condition: Stable Disposition: HOME Patient Education Materials: Viral Syndrome (ED) Referrals: [facility] [Outside] - If Needed Additional Instructions: You tested negative for influenza today. You may continue with motrin and/or tylenol for fever and pain relief. Get plenty of rest and increase your fluid intake. Follow up with your primary care provider or the [facility] if symptoms persist. - Billing Disposition and Condition Condition: STABLE Disposition: Home - Attestation Statements Provider Attestation: This patient was not seen by me. I was available for consult. Chart reviewed. PARESH
[2019-05-31 21:46] LABS: Influenza A Molecular Negative (Negative); Influenza B Molecular Negative (Negative)
== END 2019-05-31 21:52 | disposition home or self-care (01) ==
LOC: UCCORT 21:10
DX: J06.9 Acute upper respiratory infection, unspecified (principal); R05 Cough; Z88.0 Allergy status to penicillin; M79.10 Myalgia, unspecified site
CPT/HCPCS: 99211; G0463

== ENCOUNTER 2019-07-14 19:28 | Emergency (ER) | payer BC ==
[2019-07-14 19:45] VITALS: BP 133/68
--- NOTE | 2019-07-14 20:03 | UC ---
Dental HPI - HPI Summary HPI Summary: 24 yo who is 3 days post bilateral wisdom tooth extraction. Infection was identified at the time of the extraction and she is taking both clindamycin and levofloxacin for this. She was also given a course of prednisone which ends tomorrow. Pain is not well controlled; she has been using tylenol with codeine twice daily without any additional pain medications. She has increased swelling of the right cheek despite considerable time with ice, and she is feeling unwell. Minimal intake today: at best 8 ounces of fluids and no solids. Urine is dark yellow color. No fever. Overall decreased stool passage, no stool passed x 4 days, but she does not have nausea, vomiting or abdominal pain. Reports recurrent yeast vaginitis, estimating that she has had this treated 7 times this year with oral diflucan. Female partner. She has some mild discomfort with voiding, no hx of UTI's. - History of Current Complaint Chief Complaint: UCDentalProblem Stated Complaint: DENTAL/URINARY Time Seen by Provider: 07/14/19 19:43 Hx Obtained From: Patient Hx Last Menstrual Period: 07/01/19 Onset/Duration: Gradual Onset Pain Intensity: 8 Aggravating Factor(s): Chewing Alleviating Factor(s): Other (see comments) - taking tylenol with codeine about 2x per day without adequate relief Related History: Swelling - Allergies/Home Medications Allergies/Adverse Reactions: Allergies Allergy/AdvReac Type Severity Reaction Status Date / Time amoxicillin [From Augmentin] Allergy Swelling Verified 07/14/19 19:34 clavulanic acid Allergy Swelling Verified 07/14/19 19:34 [From Augmentin] Home Medications: Home Medications Codeine TAB* [Codeine Tab*] 2 tab PO Q6H PRN 07/14/19 [History Confirmed ] Levofloxacin TAB* [Levaquin TAB*] 500 mg PO DAILY 07/14/19 [History Confirmed ] Terconazole 45 gm VG DAILY #1 cream.appl 07/14/19 [Rx] clindamycin HCL [Clindamycin HCl] 150 mg PO TID 07/14/19 [History Confirmed ] oxyCODONE/Acetam5/325MG PREPAK [Percocet 5/325 TAB*] 1 tab PO Q4H PRN 07/14/19 [ History Confirmed 07/14/19] predniSONE 10 mg TAB [Deltasone 10 MG TAB*] 10 mg PO DAILY 07/14/19 [History Confirmed 07/14/19] PMH/Surg Hx/FS Hx/Imm Hx Previously Healthy: Yes - Surgical History Surgical History: Yes Surgery Procedure, Year, and Place: Appendectomy, 2014, [place]; T&A, ~1999, [place] - Family History Known Family History: Positive: Cardiac Disease, Diabetes - many members, Other - Denies FMH of Eye redness - Social History Occupation: Employed Full-time Lives: With Family Alcohol Use: Occasionally Substance Use Type: None Substance Use Comment - Amount & Last Used: occasionally Smoking Status (MU): Never Smoked Tobacco Have You Smoked in the Last Year: No - Immunization History Most Recent Influenza Vaccination: none Vaccination Up to Date: Yes Review of Systems All Other Systems Reviewed And Are Negative: Yes Constitutional: Positive: Fatigue Skin: Positive: Negative Eyes: Positive: Negative ENT: Positive: Dental Pain Respiratory: Positive: Negative Cardiovascular: Positive: Negative Gastrointestinal: Positive: Negative Genitourinary: Positive: Dysuria, Vaginal/Penile Discharge Motor: Positive: Negative Neurovascular: Positive: Negative Musculoskeletal: Positive: Negative Neurological/Mental Status: Positive: Negative Psychological: Positive: Negative Physical Exam Triage Information Reviewed: Yes Appearance: Pain Distress - moderate, Other: - alert, does not look septic, without jaundice or scleral icterus Vital Signs: Initial Vital Signs Temp 97.9 F 07/14/19 19:37 Pulse 76 07/14/19 19:37 Resp 17 07/14/19 19:37 BP 133/68 07/14/19 19:37 Pulse Ox 100 07/14/19 19:37 Vital Signs Reviewed: Yes Eye Exam: Other - ROSEMARY Eyes: Positive: Conjunctiva Clear ENT Exam: Other - right cheek swelling; pain with jaw opening limiting exam. Swelling limits visualization of sockets on the right. ENT: Positive: Other - firm induration of right cheek 5 x 7 cm over the masseter , tracking anterior to the muscle and over the mandible. No pre- or posterior auricular adenopathy. Dental Exam: Other - sockets on the left upper and lower gum lines appear to be healing. Neck: Positive: Supple, No Lymphadenopathy - no submandibular, cervical, pre or post auricular adenopathy. Respiratory: Positive: Lungs clear, Normal breath sounds Cardiovascular: Positive: RRR, No Murmur Abdomen Description: Positive: Nontender, No Organomegaly - by percussion, Soft Pelvic Exam: Positive: Other - declined vaginal exam due to recurrent evaluations showing candidal vaginitis in recent months Musculoskeletal Exam: Normal Neurological Exam: Normal Neurological: Positive: Alert, Muscle Tone Normal Psychological Exam: Normal Dental Complaint Course/Dx - Course Course Of Treatment: rehydration discusse at length--urine with ketones and bilirubin. Clinically not jauncdiced and does not have abdominal pain or symptoms suggestive of signficant hepatic dysfunction. Recurrent vaginitis discussed--advised not unexpected given antibiotic use, and briefly discussed factors which might lead to recurrent vaginitis. Course of terconazole given. Amount of cheek swelling signficant, and I contacted her oral surgeon who advised that this was not unexpected post extraction. Dr. Ding to see tomorrow - Differential Dx/Diagnosis Differential Diagnosis/Dx: Other - abscess post [place] tooth extraction, vaginitis, UTI, dehydration. Provider Diagnosis: Dehydration, Vaginitis - Physician Notification/Consults Discussed Patient Care With: Dr. Yogesh Ding Time Discussed With Above Provider: 20:15 Discharge ED - Sign-Out/Discharge Documenting (check all that apply): Patient Departure All imaging exams completed and their final reports reviewed: No Studies - Discharge Plan Condition: Stable Disposition: HOME Prescriptions: Terconazole 45 gm VG DAILY #1 cream.appl Patient Education Materials: Dehydration (ED), Yeast Infection (ED) Forms: *Work Release Referrals: No Primary Care Phys,NOPCP [Primary Care Provider] - Additional Instructions: As reviewed, you are dehydrated. Please take pain medications once at home, and make an effort to get in 1 to 2 liters of fluids tonight (tea, mesha janki, soup broth, gatorade). goal is light lclear urine. Dr. Ding is in his office tomorrow from 7:30 until noon and will work you in for a visit. If you decide not to go, please give his office a call. Off work x 2 more days. Try terconazole vaginally for yeast infection which has been a recurrent problem. You can use acetaminophen between doses of narcotic pain medications, but the maximim total of acetaminophe per day is 3000mg ( you need to add up the doses included in the tylenol with codeine.). - Billing Disposition and Condition Condition: STABLE Disposition: Home
== END 2019-07-14 20:36 | disposition home or self-care (01) ==
LOC: UCCORT 19:28
DX: E86.0 Dehydration (principal); N76.0 Acute vaginitis; K08.409 Partial loss of teeth, unspecified cause, unspecified class; Z88.1 Allergy status to other antibiotic agents; Z88.0 Allergy status to penicillin
CPT/HCPCS: 81003; 99212; G0463